=== PATIENT | female | born 1990 | race Caucasian/White ===

== ENCOUNTER 2016-10-11 15:13 | Emergency (ER) | payer MEDICAID, OTHER ==
[~2016-10-11] VITALS: Wt 57.5 kg
[2016-10-11] MEDS ORDERED: ACETAMINOPHEN 325 MG TAB PO STA (15:58)
[2016-10-11 16:20] LABS: ADD SCAN DIFF NO
[2016-10-11 16:26] LABS: BASOPHILS % 0.3 % (0.0-2.0); EOSINOPHILS % 0.6 % (0.0-7.0); HEMATOCRIT 30.9 % (37.0-47.0); HEMOGLOBIN 10.7 g/dl (12.0-16.0); LYMPHOCYTES # 1.4 10^3/ul (0.8-2.9); LYMPHOCYTES % 19.7 % (15.0-51.0); MEAN CORPUSCULAR HEMOGLOBIN 29.1 pg (29.0-33.0); MEAN CORPUSCULAR HGB CONC 34.6 g/dl (32.0-37.0); MEAN PLATELET VOLUME 10.7 fl (7.4-10.4); MONOCYTE # 0.8 10^3/ul (0.3-0.9); MONOCYTES % 10.9 % (0.0-11.0); NEUTROPHIL # 4.9 10^3/ul (1.6-7.5); NEUTROPHILS % 68.1 % (39.0-77.0); PLATELET COUNT 236 10^3/UL (140-415); RED BLOOD COUNT 3.68 10^6/ul (4.20-5.40); RED CELL DISTRIBUTION WIDTH 14.1 % (11.5-14.5); WHITE BLOOD COUNT 7.2 10^3/ul (4.8-10.8)
[2016-10-11] MEDS ORDERED: SOD CHLORIDE 0.9% 1,000 ML IV ONE (16:30)
--- NOTE | 2016-10-11 16:31 | RADRPT ---
PROCEDURE: Obstetrical ultrasound greater than 14 weeks CLINICAL INDICATION: Pelvic pain. Fall 2 weeks ago TECHNIQUE: Real time sonographic imaging of the gravid uterus is performed transabdominally and mu ltiple static gill scale and Doppler images are submitted for review as are measurements. The image s are reviewed on the PACS. COMPARISON: No relevant exams are available FINDINGS: There is a single living intrauterine gestation in cephalic presentation. The heart beat is estimated at 148 bpm. The measurements are as follows: BPD:4.93 cm HC:18.49 cm AC:16.01 cm FL:3.50 cm Estimated gestational age is 21 weeks. The estimated date of delivery is 02/21/2017. The estimated weight is 395 grams. Placenta is posterior and grade 0. There is no evidence of placenta previa or abruption. The amniotic fluid is normal , maximum vertical pocket estimated at 4.3 cm. RPTAT:HJJR IMPRESSION: 1. Single viable intrauterine gestation estimated at 21 weeks with the estimated date of delivery . 2. Posterior grade 0 placenta without abruption. Physician Juan Carlos Date Time Electronically viewed and signed by Physician Juan Carlos on 10/11/2016 16:31 /
[2016-10-11 16:35] LABS: ALBUMIN 3.9 g/dl (3.3-4.9); POTASSIUM 3.4 mmol/L (3.5-5.1)
[2016-10-11 16:37] LABS: CREATININE 0.57 mg/dl (0.44-1.00)
[2016-10-11 16:38] LABS: ALBUMIN/GLOBULIN RATIO 1.05; BILIRUBIN,INDIRECT 0.3 mg/dl (0-1.1); BILIRUBIN,TOTAL 0.3 mg/dl (0.2-1.3); CALCIUM 9.4 mg/dl (8.4-10.2); TOTAL PROTEIN 7.6 g/dl (6.1-8.1)
[2016-10-11] MEDS ORDERED: MECL12.574 PO (17:20)
[2016-10-11] MEDS ORDERED: ACET500C5 PO (17:20)
[2016-10-11 17:33] LABS: URINE BLOOD (Dip) POC Negative (NEGATIVE)
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
[2016-10-11] MEDS ORDERED: NITR-58 PO (17:39)
== END 2016-10-11 17:44 | disposition home or self-care (01) ==
LOC: FTE 15:13
DX: O99.89 Other specified diseases and conditions complicating pregnancy, childbirth and the puerperium (principal); H81.10 Benign paroxysmal vertigo, unspecified ear; R10.2 Pelvic and perineal pain; O23.12 Infections of bladder in pregnancy, second trimester; Z3A.21 21 weeks gestation of pregnancy
CPT/HCPCS: 76805; 80053; 81003; 83690; 84702; 85025; 86900; 86901; 93005; J7030; Z7610; 36415; 96360